=== PATIENT | female | born 1950 | race Caucasian/White ===

== ENCOUNTER 2018-04-26 09:56 | Day surgery (SDC) | payer OTHER ==
[~2018-04-26] VITALS: Ht 157.5 cm; Wt 71.7 kg
[~2018-04-26 09:56] MED LIST: ASTRAGALUS ROOT1 GM MISC; CURCUMIN1 GM MISC; GINGER250 MG PO; GLUCOSAMINE &1 EACH PO; LEVOTHYROXINE50 MCG PO; MULTI-VITAMIN1 EAC1 PO; OMEPRAZOLE20 MG PO; RED YEAST RICE600 M1 PO
[2018-04-26] MEDS ORDERED: CINNAMON500 MG PO (10:47)
--- NOTE | 2018-04-26 16:18 | NUR ---
04/26/18 1618 Yasmine Madrid 1614 PATIENT ARRIVES TO PACU SLEEPING, AWAKENS WITH VERBAL STIMULI, THEN BACK TO SLEEP. RESP EVEN AND UNLABORED, NC AT 2 LITERS, TURNED OFF AFTER ARRIVAL TO PACU.
--- NOTE | 2018-04-27 22:04 | OR ---
[facility] [address] [place], [place] [address] Signed DATE OF OPERATION: 04/26/2018 SURGEON: Yen Kaufman MD PREOPERATIVE DIAGNOSES: 1. Diarrhea. 2. Gastroesophageal reflux symptoms. POSTOPERATIVE DIAGNOSES: 1. Hiatal hernia without obvious esophagitis. 2. Colitis of left colon from 60 to 30 cm, most consistent with ischemic colitis. PROCEDURE: 1. Esophagogastroduodenoscopy with biopsy. 2. Total colonoscopy to cecum with biopsies. ANESTHESIA: Intravenous sedation fentanyl 100 mcg, Versed 5 mg. INDICATION: A 67-year-old white woman, a patient of Manuel Spence PA-C is here for consideration of an endoscopy and colonoscopy. She is troubled by reflux symptoms, not associated with hematemesis or dysphagia. She has been treated with Prilosec, which has helped her symptoms of epigastric pain. She is now taking Zantac, as she had symptoms of tinnitus from the PPI. That medicine is not as effective for reflux, but tinnitus went away. She has no family history of colon cancer, but she has had diarrhea from time to time, none recently. She has had no blood per rectum. She is admitted to undergo colonoscopy and upper endoscopy. She understands the risks of bleeding, infection, and perforation. FINDINGS: On upper endoscopy, the only finding of note was a hiatal hernia. She did not have severe esophagitis in any way. Certainly, no ulceration. CLOtest was negative. On colonoscopy, she clearly had colitis in the region between 60 and 30 cm (left colon) with this sparing of the remaining colon and rectum. This was most consistent with ischemic colitis, so it is uncertain. Biopsies were taken throughout including the rectum, cecum, and the ascending left colon. PROCEDURE: Electronically Signed By: YEN KAUFMAN MD 04/27/18 2204 PATIENT NAME: ECTOR VELARDE OPERATIVE REPORT DATE OF : 48 REPORT #: [id number] PHYSICIAN: YEN KAUFMAN MD PCP: MANUEL SPENCE PAC REPORT IS CONFIDENTIAL AND NOT TO BE RELEASED WITHOUT AUTHORIZATION [facility] [address] [place], [place] [address] Signed The patient was brought to the endoscopy suite, and given topical Hurricaine spray hypopharyngeal anesthesia and placed in lateral decubitus position. She was given intravenous sedation to the point of slurred speech and nystagmus. A bite block was placed. Full cardiopulmonary monitoring was maintained. An Olympus video upper endoscope was passed in the hypopharynx. The vocal cords were normal. Scope was passed in the esophagus, which appeared entirely normal throughout its length. The scope was passed to the stomach, which was insufflated with air. Rugal folds and antral motility was normal. The pylorus was normal. The scope was passed through the duodenum, which was normal. Biopsies were taken of the duodenum to assess for celiac disease. The scope was withdrawn. Biopsies taken of the antrum for both CATRACHITA and pathologic testing. Retroflex view was undertaken showing a hiatal hernia. The scope was withdrawn to the distal esophagus, but the mucosa looked entirely normal though was biopsied nevertheless, given her reflux symptoms. The midesophagus was biopsied as well to assess for eosinophilic esophagitis. The scope was further withdrawn, removed the patient was then prepared for colonoscopy. The table was rotated and additional sedation given. Digital rectal examination was normal. An Olympus video colonoscope was passed in the rectum and inflated throughout the colon. Notable upon passage of the scope to the left colon was clear, colitis type changes, and most consistent with appearance of ischemic colitis. The scope was passed ultimately to the cecum. The right colon, and cecum appeared normal. Biopsies were taken there as a baseline normal. The scope was then withdrawn and right colon, and transverse colon appeared normal. Splenic flexure essentially was normal, but approximately 60 cm from the anal verge, findings of inflammation were noted. These areas were biopsied, and the scope was further withdrawn to the area, which showed ulcerative changes and apparent ischemic changes suggestive of ischemic colitis. Biopsies were obtained. The scope was further withdrawn. Biopsies additionally taken down to about 30 cm where the inflammation was. The sigmoid itself showed some diverticula. Retroflexed view of the rectum was normal. Biopsies taken of the rectum. The scope was removed, and the patient taken to recovery in good condition. CONCLUDING DIAGNOSIS: 1. Hiatal hernia accounting for clinical reflux symptoms. 2. Colitis, left side, most consistent with ischemic colitis. PLAN: She will continue with the [facility]. We will initiate prednisone even though this may represent ischemic colitis on the possibility this is inflammatory bowel disease problem. Biopsies will be available soon enough. She will see us back in 4 weeks and we will review her progress. Electronically Signed By: YEN KAUFMAN MD 04/27/18 8335 PATIENT NAME: ECTOR VELARDE OPERATIVE REPORT DATE OF : 48 REPORT #: [id number] PHYSICIAN: YEN KAUFMAN MD PCP: MANUEL SPENCE PAC REPORT IS CONFIDENTIAL AND NOT TO BE RELEASED WITHOUT AUTHORIZATION [address] [address] Signed MD LAZARO Marsh/MODL /[id number] cc: Manuel Spence PA-C Copies: MANUEL SPNECE ~ Electronically Signed By: YEN KAUFMAN MD 04/27/18 2204 PATIENT NAME: SYDECTORMALLORY ALBERT OPERATIVE REPORT DATE OF : 48 REPORT #: [id number] PHYSICIAN: YEN KAUFMAN MD PCP: MANUEL SPENCE REPORT IS CONFIDENTIAL AND NOT TO BE RELEASED WITHOUT AUTHORIZATION
== END 2018-04-26 16:55 | disposition home or self-care (01) ==
LOC: OPS 09:56 → DS 09:56 → OPS 11:00
PROVIDERS: Surgery
PROC: 0DB28ZX Excision of Middle Esophagus, Via Natural or Artificial Opening Endoscopic, Diagnostic (ICD-10-PCS; 2018-04-26)
PROC: 0DB38ZX Excision of Lower Esophagus, Via Natural or Artificial Opening Endoscopic, Diagnostic (ICD-10-PCS; 2018-04-26)
PROC: 0DBH8ZX Excision of Cecum, Via Natural or Artificial Opening Endoscopic, Diagnostic (ICD-10-PCS; 2018-04-26)
PROC: 0DBL8ZX Excision of Transverse Colon, Via Natural or Artificial Opening Endoscopic, Diagnostic (ICD-10-PCS; 2018-04-26)
PROC: 0DBM8ZX Excision of Descending Colon, Via Natural or Artificial Opening Endoscopic, Diagnostic (ICD-10-PCS; 2018-04-26)
PROC: 0DB98ZX Excision of Duodenum, Via Natural or Artificial Opening Endoscopic, Diagnostic (ICD-10-PCS; principal; 2018-04-26 13:00)
PROC: 0DB78ZX Excision of Stomach, Pylorus, Via Natural or Artificial Opening Endoscopic, Diagnostic (ICD-10-PCS; 2018-04-26 13:00)
DX: K52.9 Noninfective gastroenteritis and colitis, unspecified (principal); K44.9 Diaphragmatic hernia without obstruction or gangrene; K20.0 Eosinophilic esophagitis; K29.50 Unspecified chronic gastritis without bleeding; E03.9 Hypothyroidism, unspecified; E66.01 Morbid (severe) obesity due to excess calories; Z79.899 Other long term (current) drug therapy; Z68.30 Body mass index [BMI] 30.0-30.9, adult; K63.5 Polyp of colon
CPT/HCPCS: 99153; G0500; J2250; J3010; J7120